=== PATIENT | female | born 1995 | race Caucasian/White ===

== ENCOUNTER 2016-05-15 04:35 | Emergency (ER) | payer MEDICAID ==
[~2016-05-15] VITALS: Ht 154.9 cm; Wt 49.9 kg
[2016-05-15 04:45] VITALS: BP 132/85; PULSE 94; RESP 19; TEMP 97.6; O2SAT 99
[2016-05-15] MEDS ORDERED: HYDROcodone/ACETAMIN 5-325 MG TAB (NORCO/ VICODIN) PO ONE (05:45)
[2016-05-15 06:04] VITALS: BP 126/78; PULSE 89; RESP 18; TEMP 97.6; O2SAT 99
== END 2016-05-15 06:03 | disposition home or self-care (01) ==
LOC: SED 04:35
DX: K04.7 Periapical abscess without sinus (principal); R03.0 Elevated blood-pressure reading, without diagnosis of hypertension
CPT/HCPCS: 99283